=== PATIENT | female | born 1995 | race Caucasian/White ===

== ENCOUNTER → 2022-04-28 | Outpatient (CLI) | payer MEDICAID, OTHER ==
[~2022-04-28] MED LIST: ALB0.5V IH; CIPR-225 PO; FAMO20TA5 PO; FLT11013 INH; FLUO20CA42 PO; IBUP-2473 PO; LORA-404 PO; MONT-40 PO; MUPI22OI2 TOP; ONDN4T PO; OXYC-556 PO; PRD20T PO; SENN-20 PO; SULF1TAB38 PO
== END ==
LOC: ORTHO 13:11
PROVIDERS: ATTEND Orthopaedic Surgery
DX: S93.492A Sprain of other ligament of left ankle, initial encounter (principal); X58.XXXA Exposure to other specified factors, initial encounter
CPT/HCPCS: 99202

== ENCOUNTER → 2022-05-19 | Outpatient (CLI) | payer OTHER | LOC: ORTHO 08:46 | PROVIDERS: ATTEND Orthopaedic Surgery | DX: S93.492D Sprain of other ligament of left ankle, subsequent encounter (principal); X58.XXXD Exposure to other specified factors, subsequent encounter | CPT/HCPCS: 99213 ==

== ENCOUNTER → 2022-08-27 | Outpatient (CLI) | payer OTHER | LOC: LAB FS 15:30 | PROVIDERS: ATTEND Family Medicine | DX: O02.1 Missed abortion (principal) | CPT/HCPCS: 36415; 84144; 84702 ==

== ENCOUNTER → 2022-09-02 | Outpatient (CLI) | payer OTHER ==
--- NOTE | 2022-09-02 13:58 | Diagnostic Imaging Report ---
PROCEDURE: Pelvic comp/transvaginal sonogram. TECHNIQUE: Complete transabdominal and transvaginal pelvic ultrasound was performed. In addition, limited pelvic Doppler was performed. INDICATION: Possible ectopic. Patient had abnormal outside ultrasound several days earlier. Comparison is made with outside study from 08/27/2022. FINDINGS: Uterus is anteverted measuring 9.4 x 4.2 x 5.7 cm. Endometrium is 8 mm in thickness. No intrauterine gestational sac is detected. No myometrial mass is identified. Left ovary was not visualized due to overlying bowel. Right ovary measures 2.5 x 3.3 x 2.2 cm. The right ovary contains small follicles. There is blood flow to the right ovary. No adnexal mass is identified. No findings to suggest ectopic are seen. There is no free fluid identified. IMPRESSION: Essentially unremarkable transabdominal and transvaginal pelvic ultrasound with limited pelvic Doppler. No intrauterine or adnexal is identified. Dictated by: Dictated on workstation # [id number]
== END ==
LOC: RAD 12:00
PROVIDERS: ATTEND Obstetrics & Gynecology
DX: N83.291 Other ovarian cyst, right side (principal)
CPT/HCPCS: 76830; 76856